=== PATIENT | female | born 1985 | race Caucasian/White ===

== ENCOUNTER 2017-04-15 14:28 | Emergency (ER) | payer OTHER ==
[~2017-04-15] VITALS: Ht 167.6 cm; Wt 61.0 kg
[2017-04-15 14:51] VITALS: BP 126/66; PULSE 100; RESP 16; TEMP 99.6; O2SAT 97
[2017-04-15] MEDS ORDERED: CLIN150C14 PO (15:15)
[2017-04-15] MEDS ORDERED: CLINDAMYCIN PHOS 600 MG/4 ML VIAL IM ONE (15:15)
[2017-04-15] MEDS ORDERED: DICL75TA PO (15:15)
[2017-04-15] MEDS ORDERED: CEPH-460 PO (15:15)
--- NOTE | 2017-04-15 15:24 | PD ---
HPI Chief Complaint: Musculoskeletal Complaint Time Seen by Provider: 15:03 Travel History International Travel<30 days: No Contact w/Intl Traveler<30days: No Traveled to known affect area: No History of Present Illness HPI 31-year-old female that presents to the ED for evaluation of left neck pain with swelling and redness to the left ear. Per patient she's had this for about 3 days. Per patient she was wearing earrings and took them off after noticing some discomfort. She states that the pain has becoming more significant. She's been doing warm compresses without relief of the discomfort. She states that she's noted that she's getting swelling on the left ear. She does not know how she got this. She has no history of MRSA. No IV drug abuse. No urinary or bowel movement issues. States having some low- grade fevers. Pain per patient is 8 out of 10 especially on the left neck. She states the before that she had some congestion and cough and this appears to have improved. She states having a sore throat. Pain is only to the left side of the neck. Denies any injuries or trauma. PFSH Past Medical History ?: Not LMP: 03/19/17 : 2 Para: 2 Social History Alcohol Use: No Tobacco Use: Yes (1 ppd) Substance Use: No Allergies-Medications (Allergen,Severity, Reaction): Coded Allergies: No Known Allergies (Verified Adverse Reaction, Unknown, 04/15/17) Reported Meds & Prescriptions Reported Meds & Active Scripts Active Keflex (Cephalexin) 500 Mg Cap 500 Mg PO Q8H 14 Days Clindamycin (Clindamycin HCl) 150 Mg Cap 300 Mg PO Q8HR [address] (Diclofenac Sodium) 75 Mg Tabdr 75 Mg PO BID PRN Review of Systems Except as stated in HPI: all other systems reviewed are Neg Physical Exam Narrative GENERAL: SKIN: Warm and dry. Patient has a pustule-like lesion with erythema on the left ear around the 2nd ear hole of the pinna. Tender to touch. Some purulence noted. Patient has erythema going down the neck for less than 2 cm. Patient does have slight lymphadenopathy noted on the left side compared to the right. She also has on the right side. HEAD: Atraumatic. Normocephalic. EYES: Pupils equal and round. No scleral icterus. No injection or drainage. ENT: No nasal bleeding or discharge. Mucous membranes pink and moist. Tongue is midline. No uvula deviation. NECK: Trachea midline. No JVD. CARDIOVASCULAR: Regular rate and rhythm. RESPIRATORY: No accessory muscle use. Clear to auscultation. Breath sounds equal bilaterally. GASTROINTESTINAL: Abdomen soft, non-tender, nondistended. Hepatic and splenic margins not palpable. MUSCULOSKELETAL: Extremities without clubbing, cyanosis, or edema. No obvious deformities. NEUROLOGICAL: Awake and alert. No obvious cranial nerve deficits. Motor grossly within normal limits. Five out of 5 muscle strength in the arms and legs. Normal speech. PSYCHIATRIC: Appropriate mood and affect; insight and judgment normal. Data Data Last Documented VS Vital Signs Date Time Temp Pulse Resp B/P (MAP) Pulse Ox O2 Delivery O2 Flow Rate FiO2 04/15/17 14:51 99.6 100 16 126/66 (86) 97 Orders Orders Clindamycin Inj (Cleocin Inj) (04/15/17 15:15) Ed Discharge Order (04/15/17 15:16) MDM Medical Decision Making Medical Screen Exam Complete: Yes Emergency Medical Condition: Yes Medical Record Reviewed: Yes Differential Diagnosis Cellulitis versus pustule versus insect bite Narrative Course 31-year-old female that presents to the ED for evaluation of left ear pain and infection. Patient was properly examined and was found to have signs and symptoms consistent appears to be cellulitis. Unclear etiology but does appear to be infectious at this time. At this time I do recommend trial of antibiotics. Patient will be given a shot of clindamycin here to help symptoms quicker. She'll be given a prescription for clindamycin and Keflex. Given diclofenac sodium for discomfort and swelling. Warm compresses endorse. Recheck in 48 hours if not better. See ED worsening symptoms. Follow with PCP. Diagnosis Primary Impression: Cellulitis Qualified Codes: L03.211 - Cellulitis of face Patient Instructions: General Instructions Additional Instructions: Take medication as prescribed. Follow-up with PCP. See ED worsening symptoms. Recheck in 48 hours if no improvement at all. Warm compresses as needed. Med/Other Pt SpecificInfo: Prescription(s) given, Wound Care Scripts Cephalexin (Keflex) 500 Mg Cap 500 MG PO Q8H for Infection for 14 Days, #42 CAP 0 Refills Prov: Huber Barone MD 04/15/17 Clindamycin (Clindamycin) 150 Mg Cap 300 MG PO Q8HR for Infection for 14 Days, CAP 0 Refills Prov: Huber Barone MD 04/15/[address] (Diclofenac Sodium DR) 75 Mg Tabdr 75 MG PO BID Y for PAIN SCALE 1 TO 10, #20 TAB 0 Refills Prov: Huber Barone MD 04/15/17 Disposition: 01 DISCHARGE HOME Condition: Stable Attila Rodriguez Apr 15, 2017 15:24
== END 2017-04-15 16:18 | disposition home or self-care (01) ==
LOC: PHEFT 14:28
DX: L03.211 Cellulitis of face (principal); F17.210 Nicotine dependence, cigarettes, uncomplicated
CPT/HCPCS: 96372